=== PATIENT | male | born 1945 | race Caucasian/White ===

== ENCOUNTER 2020-04-15 23:52 | Emergency (ER) | payer MEDICARE ==
[~2020-04-15] VITALS: Ht 167.6 cm; Wt 68.9 kg
[~2020-04-15 23:52] MED LIST: AMLO-150 PO; LEVO50TA5 PO; LISI-167 PO
--- NOTE | 2020-04-16 00:11 | NUR ---
INITIAL PT CONTACT. PT C/O HIGH BLOOD PRESSURE WITH A HEADACHE. HX OF SAME, RECENTLY SEEN FOR SAME. PT REPORTS HE "TOOK MY HIGH BLOOD PRESSURE MEDICATION JUST BEFORE GETTING HERE BUT I STOPPED A FEW DAYS AGO BECAUSE MY BLOOD PRESSURE WAS A LITTLE LOW WHEN I MEASURED IT". PT SITTING UPRIGHT, NADN, VSS. PT DENIES ANY NEEDS AT THIS TIME. CALL LIGHT IN REACH, AWAITING ERP.
--- NOTE | 2020-04-16 00:51 | NUR ---
erp at bedside
[2020-04-16 01:13] VITALS: BP 150/68
--- NOTE | 2020-04-16 01:13 | NUR ---
Patient given discharge instructions and they have confirmed that they understand the instructions. Patient ambulatory with steady gait.
== END 2020-04-16 01:15 | disposition home or self-care (01) ==
LOC: ED 04-16 00:22
DX: I10 Essential (primary) hypertension (principal); E03.9 Hypothyroidism, unspecified; R94.31 Abnormal electrocardiogram [ECG] [EKG]; R51.9 Headache, unspecified
CPT/HCPCS: 93005; 99283

== ENCOUNTER 2020-11-13 21:14 | Emergency (ER) | payer MEDICARE ==
[~2020-11-13] VITALS: Ht 167.6 cm; Wt 68.9 kg
[2020-11-13] MEDS ORDERED: SODIUM CHLORIDE FLUSH 10ML SYR IVF ONE (21:30)
[2020-11-13 22:20] LABS: BASOPHILS % (AUTO) 0 % (0-1); EOSINOPHILS % (AUTO) 0 % (1-7); LYMPHOCYTES % (AUTO) 5 % (22-44); MEAN CORPUSCULAR HEMOGLOBIN 29.7 pg (27.5-34.5); MEAN CORPUSCULAR HGB CONC 34.5 g/dL (33.2-36.2); MEAN PLATELET VOLUME 7.9 fL (7.4-10.4); MONOCYTES % (AUTO) 3 % (2-9); NEUTROPHILS % (AUTO) 91 % (42-75); PLATELET COUNT 227 x10^3/uL (130-400); RED BLOOD COUNT 5.72 x10^6/uL (4.38-5.82); RED CELL DISTRIBUTION WIDTH 13.4 % (9.4-14.8)
[2020-11-13 22:32] LABS: ALANINE AMINOTRANSFERASE 26 U/L (12-78); ALBUMIN 4.2 g/dL (3.4-5.0); ANION GAP 5 mmol/L (5-15); CHLORIDE 105 mmol/L (98-107); CREATININE 1.13 mg/dL (0.7-1.3)
[2020-11-13] MEDS ORDERED: ONDANSETRON ODT 4 MG ONE (22:36)
--- NOTE | 2020-11-13 22:41 | NUR ---
BREAK RN: PT PRESENTS TO ED C/O "IRREGULAR HEARTBEAT AFTER EATING DINNER AND GOING FOR A WALK. IT WAS IN THE 70'S AND THAT IS REALLY FAST FOR ME." DENIES SOB, CHEST PAIN AT THIS TIME. PT REPORTS [place] AND IS ACTIVELY VOMITING IN ROOM. PT PLACED ON CONTINUOUS MONITORING, CALL LIGHT AND PERSONAL BELONGINGS WITHIN REACH. ERP AT BEDSIDE. PT REFUSES PIV INSERTION AT THIS TIME.
[2020-11-13 22:42] LABS: ALKALINE PHOSPHATASE 74 U/L (45-117); BILIRUBIN,TOTAL 0.5 mg/dL (0.2-1.0); TOTAL PROTEIN 8.1 g/dL (6.4-8.2); TROPONIN I < 0.015 ng/mL (0.000-0.045)
[2020-11-13 22:55] LABS: FREE T4 (FREE THYROXINE) 0.94 ng/dL (0.76-1.46)
[2020-11-13] MEDS ORDERED: ONDANSETRON ODT 4 MG PO ONE (23:00)
--- NOTE | 2020-11-14 00:30 | NUR ---
pt is checking his own caratoid pulse and states, "I feel like my heart rate is back in the mid 60's, I'm ready to go home.". aware.
[2020-11-14 00:58] VITALS: BP 134/64
--- NOTE | 2020-11-14 01:00 | NUR ---
Patient given discharge instructions and they have confirmed that they understand the instructions. Patient ambulatory with steady gait. NAD, all questions answered appropriately, denies additional needs at this time. No personal belongings left in room after discharge.
== END 2020-11-14 01:01 | disposition home or self-care (01) ==
LOC: ED 22:45
DX: R00.2 Palpitations (principal); R11.2 Nausea with vomiting, unspecified; I49.3 Ventricular premature depolarization; I10 Essential (primary) hypertension; E03.9 Hypothyroidism, unspecified
CPT/HCPCS: 36415; 71045; 80053; 84439; 84443; 84484; 85025; 93005; 99285; Q0162